=== PATIENT | female | born 1995 | race Hispanic/Latino ===

== ENCOUNTER 2023-09-26 19:45 | Inpatient (IN) | payer BC ==
[~2023-09-26 19:45] MED LIST: Bupivacaine 0.25% HCL 30 ML VIAL ONE
[2023-09-26 20:13] VITALS: BMI 30.2
[2023-09-26] MEDS ORDERED: Carboprost 250 MCG/ML AMP IM PRN (20:35)
[2023-09-26] MEDS ORDERED: Misoprostol 200 MCG TAB PR PRN (20:35)
[2023-09-26] MEDS ORDERED: Methylergonovine 0.2 MG/ML VIAL IM PRN (20:35)
[2023-09-26] MEDS ORDERED: Tranexamic Acid 1,000 MG/10 ML VIAL IVP PRN (20:35)
[2023-09-26] MEDS ORDERED: Promethazine HCl 25 MG/ML VIAL IM PRN (20:35)
[2023-09-26] MEDS ORDERED: Diphenoxylate HCl/Atropine Tablet PO PRN (20:35)
[2023-09-26] MEDS ORDERED: hydrALAZINE 20 MG/ML VIAL SLOW IVP PRN (20:35)
[2023-09-26] MEDS ORDERED: Lidocaine 1% (PF) 30 ML VIAL SC PRN (20:35)
[2023-09-26] MEDS ORDERED: Butorphanol Tartrate 1 MG/ML VIAL SLOW IVP PRN (20:35)
[2023-09-26] MEDS ORDERED: Ibuprofen 800 MG TAB PO PRN (20:35)
[2023-09-26] MEDS ORDERED: fentaNYL 50 mcg/mL 1 mL Vial SLOW IVP PRN (20:35)
[2023-09-26] MEDS ORDERED: Ondansetron PF 4 MG/2 ML Vial IVP PRN (20:35)
[2023-09-26] MEDS ORDERED: Docusate 100 MG CAP PO PRN (20:35)
[2023-09-26] MEDS ORDERED: Acetaminophen 500 MG TAB PO PRN (20:35)
[2023-09-26] MEDS: Lactated Ringer's 1,000 ML IV SCH (20:40)
[2023-09-26] MEDS ORDERED: Misoprostol 100 MCG TAB VAG SCH ×2 (20:45)
[2023-09-26] MEDS ORDERED: Oxytocin 30 units/NS 500 ML 500 ML IV SCH ×3 (20:45→21:00)
[2023-09-26 21:06] LABS: Hemoglobin 12.5 g/dL (12.0-15.5); Mean Corpuscular HGB CONC 33.8 g/dL (32.0-36.0); Mean Platelet Volume 11.5 fl (7.4-10.4); Platelet Count 169 10x3/uL (150-450); RBC Distribution Width 14.2 % (11.5-14.5); Red Blood Cell (RBC) Count 4.46 10x6/uL (3.90-5.03); White Blood Cell (WBC) Count 10.8 10x3/uL (3.5-10.5)
[2023-09-26 21:44] LABS: HBSAg Index 0.18 S/CO (0-0.99); Hep B Surf Ag - L&D Non-Reactive S/CO (NonReactive)
[2023-09-26 21:47] LABS: Syphilis Antibody Nonreactive (Nonreactive); Syphilis Antibody Index 0.11 S/CO (<1.00 Non-Reactive)
[2023-09-27] MEDS ORDERED: fentaNYL/Ropivacaine Epidural 100 ML ONE (02:55)
[2023-09-27] MEDS: Lactated Ringer's 1,000 ML IV SCH (03:28)
[2023-09-27] MEDS ORDERED: diphenhydrAMINE 50 MG/ML VIAL IVP PRN (03:32)
[2023-09-27] MEDS ORDERED: Promethazine HCl 25 MG/ML VIAL IM PRN ×2 (03:32→14:44)
[2023-09-27] MEDS ORDERED: Ondansetron PF 4 MG/2 ML Vial IVP PRN ×2 (03:32→14:44)
[2023-09-27] MEDS ORDERED: Naloxone HCl 0.4 mg/ml Vial IVP PRN ×2 (03:32)
[2023-09-27] MEDS ORDERED: Moisturizing Cream (Eucerin) 113 GM JAR TOP PRN (03:32)
[2023-09-27] MEDS ORDERED: Lactated Ringer's 500 ML IV PRN (03:32)
[2023-09-27] MEDS ORDERED: Acetaminophen 325 MG TAB PO PRN (03:32)
[2023-09-27] MEDS ORDERED: ePHEDrine Sulfate 50 MG/10 ML VIAL SLOW IVP PRN (03:32)
[2023-09-27] MEDS ORDERED: Communication Order-Pharmacy FS SCH (03:45)
[2023-09-27] MEDS ORDERED: fentaNYL 2 mcg/Ropivacaine 0.2% Epidural 100 ML CADD EPIDURAL SCH (03:45)
[2023-09-27] MEDS ORDERED: Misoprostol 200 MCG TAB ONE (10:35)
[2023-09-27] MEDS ORDERED: Tranexamic Acid 1,000 MG/10 ML VIAL ONE (10:35)
[2023-09-27] MEDS ORDERED: Methylergonovine 0.2 MG/ML VIAL ONE (10:36)
[2023-09-27] MEDS ORDERED: Oxytocin 30 units/NS 500 ML 500 ML ONE (10:36)
[2023-09-27] MEDS ORDERED: Carboprost 250 MCG/ML AMP ONE (10:36)
[2023-09-27] MEDS ORDERED: Preparation H Ointment 28 GM TUBE PR PRN (14:44)
[2023-09-27] MEDS ORDERED: Lanolin Ointment 7 GM TUBE TOP PRN (14:44)
[2023-09-27] MEDS ORDERED: Benzocaine-Menthol 82.5 ML CAN TOP PRN (14:44)
[2023-09-27] MEDS ORDERED: Milk Of Magnesia 30 ML UDCUP PO PRN (14:44)
[2023-09-27] MEDS ORDERED: Boostrix 0.5 ML (Tdap) VIAL (>/=7 yrs of age) IM ONE (14:44)
[2023-09-27] MEDS ORDERED: HYDROcodone/Acetaminophen 5/325 mg Tablet PO PRN ×2 (14:44)
[2023-09-27] MEDS ORDERED: hydrALAZINE 20 MG/ML VIAL SLOW IVP PRN (14:44)
[2023-09-27] MEDS ORDERED: diphenhydrAMINE 25 MG CAP PO PRN (14:44)
[2023-09-27] MEDS ORDERED: Bisacodyl 10 MG SUPP PR PRN (14:44)
[2023-09-27] MEDS: Ibuprofen 800 MG TAB PO SCH ×2 (16:30→22:51)
[2023-09-27] MEDS: Ferrous Sulfate 325 MG TAB PO SCH (18:48)
[2023-09-27] MEDS: Docusate 100 MG CAP PO SCH (21:41)
[2023-09-28 04:02] LABS: Hematocrit 27.7 % (34.9-44.5); Hemoglobin 9.4 g/dL (12.0-15.5)
[2023-09-28] MEDS: Ibuprofen 800 MG TAB PO SCH ×3 (05:56→22:12)
[2023-09-28] MEDS: Ferrous Sulfate 325 MG TAB PO SCH ×2 (08:15→17:40)
[2023-09-28] MEDS: Docusate 100 MG CAP PO SCH ×2 (08:15→22:11)
[2023-09-28] MEDS: Prenatal Vitamin 1 TAB PO SCH (08:15)
[2023-09-29] MEDS: Ibuprofen 800 MG TAB PO SCH (06:23)
[2023-09-29 07:36] VITALS: BP 109/64; TEMP 98.1
[2023-09-29] MEDS: Docusate 100 MG CAP PO SCH (08:38)
[2023-09-29] MEDS: Prenatal Vitamin 1 TAB PO SCH (08:38)
[2023-09-29] MEDS: Ferrous Sulfate 325 MG TAB PO SCH (08:38)
== END 2023-09-29 13:10 | disposition home or self-care (01) | DRG 806 ==
LOC: CSHLD/OP 19:45 → CSHLD 20:34 → CSHPP 09-27 14:52
PROVIDERS: ADMIT Student in an Organized Health Care Education/Training Program; ATTEND Student in an Organized Health Care Education/Training Program
PROC: 10E0XZZ Delivery of Products of Conception, External Approach (ICD-10-PCS; principal; 2023-09-27)
PROC: 0KQM0ZZ Repair Perineum Muscle, Open Approach (ICD-10-PCS; 2023-09-27)
DX: O42.02 Full-term premature rupture of membranes, onset of labor within 24 hours of rupture (principal); O72.1 Other immediate postpartum hemorrhage; Z37.0 Single live birth; Z3A.39 39 weeks gestation of pregnancy; O70.1 Second degree perineal laceration during delivery
CPT/HCPCS: 36415; 85014; 85018; 85027; 86780; 86850; 86900; 86901; 87340; J3010; J7120; S0020

== ENCOUNTER 2025-10-19 18:00 | Inpatient (IN) | payer OTHER ==
[2025-10-20 06:41] VITALS: BMI 32.1
[2025-10-20] MEDS ORDERED: Oxytocin 30 units/NS 500 ML 500 ML IVPB SCH (07:15)
[2025-10-20 07:27] LABS: #Basophils Less than 0.03 10x3/uL (0.0-0.2); #Eosinophils 0.06 10x3/uL (0.0-0.5); #Monocytes 0.64 10x3/uL (0.0-1.1); #Neutrophils 6.61 10x3/uL (1.5-8.4); %Basophils 0.2 % (0.0-2.0); %Eosinophils 0.7 % (0.0-6.0); %Lymphocytes 16.7 % (18.0-47.0); %Monocytes 7.0 % (0.0-10.0); %Neutrophils 72.8 % (40.0-75.0); Hematocrit 32.1 % (34.9-44.5); Hemoglobin 11.0 g/dL (12.0-15.5); Mean Corpuscular Hemoglobin 28.6 pg (27.0-33.0); Mean Corpuscular Volume 83.4 fL (81.6-98.3); Platelet Count 146 10x3/uL (150-450); Red Blood Cell (RBC) Count 3.85 10x6/uL (3.90-5.03); White Blood Cell (WBC) Count 9.09 10x3/uL (3.5-10.5)
[2025-10-20 07:55] LABS: Syphilis Antibody Index 0.12 S/CO (<1.00 Non-Reactive)
[2025-10-20] MEDS ORDERED: Bupivacaine HCl 0.5%/Epinephrine 1:200,000/PF 30 ml Vial ONE (08:00)
[2025-10-20] MEDS ORDERED: hydrALAZINE 20 MG/ML VIAL SLOW IVP PRN ×2 (08:02→14:49)
[2025-10-20] MEDS ORDERED: Carboprost 250 MCG/ML AMP IM PRN (08:02)
[2025-10-20] MEDS ORDERED: Lidocaine 1% (PF) 30 ML VIAL SC PRN (08:02)
[2025-10-20] MEDS ORDERED: HYDROcodone/Acetaminophen 5/325 mg Tablet PO PRN ×2 (08:02→14:49)
[2025-10-20] MEDS ORDERED: Acetaminophen 500 MG TAB PO PRN (08:02)
[2025-10-20] MEDS ORDERED: Tranexamic Acid 1,000 MG/10 ML VIAL IVP PRN (08:02)
[2025-10-20] MEDS ORDERED: Ondansetron PF 4 MG/2 ML Vial IVP PRN ×3 (08:02→14:49)
[2025-10-20] MEDS ORDERED: Ibuprofen 800 MG TAB PO PRN (08:02)
[2025-10-20] MEDS ORDERED: Diphenoxylate HCl/Atropine Tablet PO PRN (08:02)
[2025-10-20] MEDS ORDERED: Methylergonovine 0.2 MG/ML VIAL IM PRN (08:02)
[2025-10-20] MEDS ORDERED: Oxytocin 30 units/NS 500 ML 500 ML IV SCH ×2 (08:15)
[2025-10-20 08:36] LABS: Hep B Surf Ag - L&D Non-Reactive S/CO (NonReactive)
[2025-10-20] MEDS: fentaNYL/Ropivacaine Epidural 100 ML ONE (08:53)
[2025-10-20] MEDS ORDERED: diphenhydrAMINE 50 MG/ML VIAL IVP PRN (08:57)
[2025-10-20] MEDS ORDERED: Acetaminophen 325 MG TAB PO PRN (08:57)
[2025-10-20] MEDS ORDERED: fentaNYL 2 mcg/Ropivacaine 0.2% Epidural 100 ML CADD EPIDURAL SCH (09:00)
[2025-10-20] MEDS ORDERED: Lanolin Ointment 7 GM TUBE TOP PRN (14:49)
[2025-10-20] MEDS ORDERED: Preparation H Ointment 28 GM TUBE PR PRN (14:49)
[2025-10-20] MEDS ORDERED: Bisacodyl 10 MG SUPP PR PRN (14:49)
[2025-10-20] MEDS ORDERED: diphenhydrAMINE 25 MG CAP PO PRN (14:49)
[2025-10-20] MEDS ORDERED: Milk Of Magnesia 30 ML UDCUP PO PRN (14:49)
[2025-10-20] MEDS: Oxytocin 30 units/NS 500 ML 500 ML ONE (14:56)
[2025-10-20] MEDS: Ibuprofen 800 MG TAB PO SCH (15:53)
[2025-10-20] MEDS: Benzocaine-Menthol 82.5 ML CAN TOP PRN (15:54)
[2025-10-20] MEDS: Ferrous Sulfate 325 MG TAB PO SCH (21:05)
[2025-10-21 11:59] VITALS: BP 119/78; TEMP 98.3
[2025-10-23 14:36] LABS: HBSAB Concentration Less than 8.00 mIU/mL
== END 2025-10-21 14:35 | disposition home or self-care (01) | DRG 807 ==
LOC: CSHLD 10-20 05:33 → CSHPP 10-20 14:35
PROVIDERS: ADMIT Student in an Organized Health Care Education/Training Program; ATTEND Student in an Organized Health Care Education/Training Program
PROC: 10E0XZZ Delivery of Products of Conception, External Approach (ICD-10-PCS; principal; 2025-10-20)
PROC: 10907ZC Drainage of Amniotic Fluid, Therapeutic from Products of Conception, Via Natural or Artificial Opening (ICD-10-PCS; 2025-10-20)
DX: O70.0 First degree perineal laceration during delivery (principal); Z37.0 Single live birth; Z3A.39 39 weeks gestation of pregnancy
CPT/HCPCS: 51702; 85025; 86706; 86780; 86850; 86900; 86901; 87340